=== PATIENT | female | born 1980 | race Caucasian/White ===

== ENCOUNTER 2017-07-31 20:31 | Emergency (ER) | payer MEDICAID ==
[~2017-07-31] VITALS: Ht 154.9 cm; Wt 88.7 kg
[~2017-07-31 20:31] MED LIST: ARIP5TAB4 PO; CITA-278 PO; FERR325T39 PO; IBUP-1572 PO; LORA0.5T PO; TEMA30CA5 PO; TOPI50TA PO
[2017-07-31] MEDS ORDERED: benzonatate 100mg capsule PO ONE (20:55)
[2017-07-31] MEDS ORDERED: cyclobenzaprine 10mg tablet PO ONE (20:55)
[2017-07-31 21:25] VITALS: BP 142/73
[2017-07-31] MEDS ORDERED: CYCL-1 PO (21:31)
== END 2017-07-31 21:40 | disposition home or self-care (01) ==
LOC: ER 20:32
DX: R07.89 Other chest pain (principal); R05 Cough; F17.200 Nicotine dependence, unspecified, uncomplicated; G43.909 Migraine, unspecified, not intractable, without status migrainosus; Z90.49 Acquired absence of other specified parts of digestive tract; Z79.899 Other long term (current) drug therapy
CPT/HCPCS: 71046; 99284

== ENCOUNTER 2017-08-02 10:29 | Emergency (ER) | payer MEDICAID ==
[~2017-08-02] VITALS: Ht 154.9 cm; Wt 70.0 kg
[~2017-08-02 10:29] MED LIST changes: +CYCL-1 PO
[2017-08-02] MEDS ORDERED: morphine 4 MG/ML inj SYRINge IV ONE (12:35)
[2017-08-02] MEDS ORDERED: ondansetron/PF 4mg/2ml inj IV ONE (12:35)
[2017-08-02] MEDS ORDERED: diazepam 5mg tablet PO ONE (12:35)
[2017-08-02] MEDS ORDERED: HYDR-565 PO (13:25)
[2017-08-02] MEDS ORDERED: ONDA4TAB9 PO (13:25)
[2017-08-02 14:00] VITALS: BP 110/52
== END 2017-08-02 14:06 | disposition home or self-care (01) ==
LOC: ER 10:30
DX: S22.31XA Fracture of one rib, right side, initial encounter for closed fracture (principal); G43.909 Migraine, unspecified, not intractable, without status migrainosus; F41.9 Anxiety disorder, unspecified; Z90.49 Acquired absence of other specified parts of digestive tract; Z79.899 Other long term (current) drug therapy; X58.XXXA Exposure to other specified factors, initial encounter; Y93.89 Activity, other specified; Y99.8 Other external cause status; Y92.89 Other specified places as the place of occurrence of the external cause
CPT/HCPCS: 71250; 96374; 96375; 99284; J2270; J2405

== ENCOUNTER 2018-02-25 18:30 | Emergency (ER) | payer MEDICAID ==
[~2018-02-25] VITALS: Ht 154.9 cm; Wt 84.3 kg
[2018-02-25 18:58] VITALS: BP 122/83
[2018-02-25] MEDS ORDERED: ipratropium/albuterol 3ml nebule NEB ONE (19:25)
[2018-02-25] MEDS ORDERED: ALBU6.7H INH (19:33)
[2018-02-25] MEDS ORDERED: PRED20TA PO (19:33)
[2018-02-25] MEDS ORDERED: AZIT250T2 PO (19:33)
== END 2018-02-25 21:25 | disposition home or self-care (01) ==
LOC: ER 18:31
DX: J40 Bronchitis, not specified as acute or chronic (principal); Z90.49 Acquired absence of other specified parts of digestive tract; Z98.890 Other specified postprocedural states; Z79.2 Long term (current) use of antibiotics; Z79.899 Other long term (current) drug therapy
CPT/HCPCS: 71046; 94640; 94760; 99283

== ENCOUNTER 2020-04-10 02:09 | Emergency (ER) | payer MEDICAID ==
[~2020-04-10 02:09] MED LIST changes: +ALBU6.7H9 INH; +ARIP5TAB14 PO; -ARIP5TAB4 PO; -CITA-278 PO; +CITA20TA28 PO
[2020-04-10] MEDS ORDERED: ondansetron 4mg rapidly disintigrating tab PO ONE (02:15)
--- NOTE | 2020-04-10 02:30 | NUR ---
Patient sleeping comfortably, she is on the monitor and I will keep an eye on her.
[2020-04-10 05:00] VITALS: BP 107/67
== END 2020-04-10 06:45 | disposition home or self-care (01) ==
LOC: ER 02:09
DX: F10.129 Alcohol abuse with intoxication, unspecified (principal); R11.0 Nausea; G43.909 Migraine, unspecified, not intractable, without status migrainosus; F41.9 Anxiety disorder, unspecified; Z87.440 Personal history of urinary (tract) infections; Z90.89 Acquired absence of other organs; Z72.89 Other problems related to lifestyle; Z79.899 Other long term (current) drug therapy; Y90.9 Presence of alcohol in blood, level not specified
CPT/HCPCS: 99284

== ENCOUNTER 2022-12-24 09:49 | Emergency (ER) | payer MEDICAID ==
[~2022-12-24] VITALS: Ht 154.9 cm; Wt 56.4 kg
[~2022-12-24 09:49] MED LIST changes: +ALBU6.7H14 INH; -ALBU6.7H9 INH
--- NOTE | 2022-12-24 10:50 | NUR ---
1037 I have reviewed and agree with all interventions, assessments performed and documented by SHERYL Zaman.
[2022-12-24] MEDS ORDERED: CHLO473M3 PO (11:14)
[2022-12-24] MEDS ORDERED: AMOX-117 PO (11:14)
[2022-12-24] MEDS ORDERED: acetaminophen 325mg tablet PO ONE (11:15)
[2022-12-24] MEDS ORDERED: amox tr/potassium clavulanate 875/125mg TAB PO ONE (11:15)
[2022-12-24] MEDS ORDERED: ketorolac trometh. 30mg/ml inj. IM ONE (11:15)
[2022-12-24 11:28] VITALS: BP 105/66; PULSE 61; RESP 17; TEMP 97.7; O2SAT 99
== END 2022-12-24 13:46 | disposition home or self-care (01) ==
LOC: ER 09:50
DX: K04.7 Periapical abscess without sinus (principal); F41.9 Anxiety disorder, unspecified; G43.909 Migraine, unspecified, not intractable, without status migrainosus; Z90.49 Acquired absence of other specified parts of digestive tract; Z79.899 Other long term (current) drug therapy
CPT/HCPCS: 96372; 99283; J1885

== ENCOUNTER 2024-10-22 16:28 | Emergency (ER) | payer MEDICAID ==
[~2024-10-22] VITALS: Ht 152.4 cm; Wt 61.8 kg
[~2024-10-22 16:28] MED LIST changes: +ARIP5TAB12 PO; -ARIP5TAB14 PO; +CHLO473M13 PO; +CITA-178 PO; -CITA20TA28 PO
[2024-10-22 16:52] VITALS: BP 110/70; PULSE 87; RESP 16; TEMP 97.8; O2SAT 99
--- NOTE | 2024-10-22 16:58 | Physician Documentation ---
History of Present Illness Stated Complaint: SPIDER BITE Time Seen by MD: 16:43 Primary Medical Doctor: [facility] This is a 44-year-old female that presents to the emergency department for evaluation of an abscess to her left posterior forearm. She reports that she felt a tickle on her arm while she was lying in bed on Wednesday but did not feel any pain at that time. Over the course of and Wednesday the patient reports that her arm started stinging she developed a bump saw her physician on Wednesday she was placed on antibiotics at that time. Patient reports that she has been taking the antibiotics since Wednesday and swelling have gotten worse since that time. Patient denies any fevers nausea vomiting patient is afebrile for us here today. Medication Reconciliation Allergies: Coded Allergies: No Known Allergies (Unverified , 10/22/24) Scheduled Albuterol Sulfate (Proventil Hfa), 2 PUFFS INH Q6H Aripiprazole* (Abilify*), 2 MG PO DAILY, (Reported) Chlorhexidine Gluconate (Periogard), 15 ML PO Q12H Citalopram Hydrobromide* (Celexa*), 1 TAB PO DAILY, (Reported) Ferrous Sulfate (Ferrous Sulfate), 1 TABLET PO BID, (Reported) Ibuprofen (Ibuprofen), 400 MG PO Q8H Temazepam* (Restoril*), 15 MG PO HS, (Reported) Topiramate (Topamax), 150 MG PO DAILY, (Reported) Scheduled PRN Cyclobenzaprine* (Cyclobenzaprine*), 1 TABLET PO Q8H PRN for muscle spasms Lorazepam* (Ativan*), 0.5 MG PO Q12H PRN for anxiety, (Reported) Past Medical History Past Medical History: Migraine, Hernia, UTI, Anxiety Past Surgical History: appendectomy Other Past Surgical History: Hernia Repair Alcohol Use: Occasionally Drug Use: none Lives with: Spouse Lives In: Home Review of Systems ROS As stated above in the HPI, otherwise all systems are reviewed and negative. Physical Exam Physical Exam VITALS: Reviewed and as above. GENERAL: Alert, no apparent distress. HEENT: Normocephalic, atraumatic, PERRL, EOMI, dry mucosa, no erythema RESPIRATORY: Lungs clear, normal breath sounds, no respiratory distress. CHEST: No accessory muscle use, no retractions CV: Regular rate, rhythm, no edema, no murmur, No: JVD GI: Soft, non-tender, bowels sounds present, no rebound, guarding, or rigidity BACK: No CVA tenderness, or swelling MUSCULOSKELETAL No deformities, no edema SKIN: Warm and dry, erythema swelling noted to the left posterior forearm. NEURO: Oriented x4, No motor or sensory deficit PSYCH: Normal mood and affect, no agitation Medical Decision Making Findings This patient presents with a painful fluid pocket with fluctuance and surrounding induration and erythema, concerning for an abscess of the left posterior elbow. The abscess was anesthetized with lidocaine and then I&D was p erformed with deloculation and purulence was expressed. There is no lymphangitic spread visible. Low concern for osteomyelitis. Patient is not immunocompromised, and there is no bullae, pain out of proportion, or rapid progression concerning for necrotizing fasciitis. Patient to be discharged home with bactrim. Patient is already on keflex. Patient will follow up with follow up with their PMD. Strict return precautions will be provided. Differential Dx:Considerations: Include: AAA, -Complete, - Incomplete, -Inevitable, -Missed, -Threatened, Abruptio placentae, Angina/[place], Aortic dissection, Appendicitis, Bowel obstruction, Cholangitis, Cholelithasis, Constipation, Diverticular disease, Esophageal rupture, Esophagitis, Gastritis/PUD, Gastroenteritis, GI hemorrhage, Hernia, Hepatitis, Inflammatory BD, Ischemic bowel, Ovarian cyst/torsion, Pancreatitis, PID, Porphyria, Trauma, intraabdominal, Urinary obstruction, Urinary tract infection, Urolithiasis, Other Departure Disposition: 01 HOME / SELF CARE / HOMELESS Impression: Primary Impression: Abscess Additional Impressions: Erythema Swelling Pain Condition: Stable Discharge Instructions: Abscess, Care After, Skin Abscess, [id number], Incision and Drainage Additional Instructions: This patient presents with a painful fluid pocket with fluctuance and surrounding induration and erythema, concerning for an abscess of the left posterior elbow. The abscess was anesthetized with lidocaine and then I&D was performed with deloculation and purulence was expressed. There is no lymphangit ic spread visible. Low concern for osteomyelitis. Patient is not immunocompromised, and there is no bullae, pain out of proportion, or rapid progression concerning for necrotizing fasciitis. Patient to be discharged home with bactrim. Patient is already on keflex. Follow up with her primary care provider for a wound check in 2 days. Return to the emergency department if you have any worsening or recurrent symptoms or any additional concerning symptoms that we discussed here today i.e. increased redness increased swelling increased pain, fever chills nausea vomiting or any other concerning symptoms. Referrals: NO PRIMARY CARE PROVIDER (PCP) Prescriptions Sulfamethoxazole/Trimethoprim (Bactrim Ds Tablet) 800 Mg-160 Mg Tablet 1 TAB PO Q12H for 10 Days, #20 TAB Prov: DANIELLE DAO 10/22/24 Education Educated: Patient Educated regarding: diagnosis, treatment, need for follow up Signature Scribe Signature: A Attestation: Scribed for Danielle Dao by JENNY Yi . 10/22/24 18:10 DANIELLE DAO Oct 22, 2024 16:58
[2024-10-22] MEDS: LIDOcaine 1% 30ml preserv. free vial IJ ONE (17:17)
[2024-10-22] MEDS: LIDOcaine 1% 30ml preserv. free vial IJ STA (17:17)
[2024-10-22] MEDS ORDERED: SULF1TAB49 PO (18:09)
[2024-10-22] MEDS: sulfamethoxazole/trimethoprim DS (800/160mg) tablet PO ONE (18:18)
== END 2024-10-22 18:20 | disposition home or self-care (01) ==
LOC: ER 16:29
DX: L02.512 Cutaneous abscess of left hand (principal); F41.9 Anxiety disorder, unspecified; G43.909 Migraine, unspecified, not intractable, without status migrainosus; Z90.49 Acquired absence of other specified parts of digestive tract; Z98.890 Other specified postprocedural states; Z79.899 Other long term (current) drug therapy; Z72.89 Other problems related to lifestyle
CPT/HCPCS: 10060; 99283; A6266; J7030; A6446; A6449

== ENCOUNTER 2025-01-21 09:22 | Emergency (ER) | payer MEDICAID ==
[~2025-01-21] VITALS: Ht 152.4 cm; Wt 61.6 kg
[2025-01-21 09:30] VITALS: BP 142/81; PULSE 86; RESP 18; TEMP 97; O2SAT 98
[2025-01-21] MEDS ORDERED: IBUP-1984 PO (09:51)
[2025-01-21] MEDS ORDERED: CEPH-585 PO (09:51)
[2025-01-21] MEDS ORDERED: OFLO5DRO LEFTEYE (09:52)
--- NOTE | 2025-01-21 09:52 | Physician Documentation ---
History of Present Illness ~ Chief Complaint: Eye Pain Stated Complaint: EYE PAIN Time Seen by MD: 09:47 Primary Medical Doctor: KASSIDY EPSARZA [facility] Otherwise healthy 44-year-old female who presents to the emergency department for evaluation of the left upper eyelid stye. He states symptoms have been present for one week without resolution. She continues to warm moist soaks. C oncerned because there is mild upper lid erythema. No fevers. No visual difficulties. Medication Reconciliation Allergies: Coded Allergies: No Known Allergies (Unverified , 01/21/25) Scheduled Albuterol Sulfate (Proventil Hfa), 2 PUFFS INH Q6H Aripiprazole* (Abilify*), 2 MG PO DAILY, (Reported) Cephalexin*Monohydrate* (Keflex*), 1 CAP PO TID Chlorhexidine Gluconate (Periogard), 15 ML PO Q12H Citalopram Hydrobromide* (Celexa*), 1 TAB PO DAILY, (Reported) Ferrous Sulfate (Ferrous Sulfate), 1 TABLET PO BID, (Reported) Ibuprofen (Ibuprofen), 400 MG PO Q8H Ibuprofen* (Motrin*), 400 MG PO Q6H Ofloxacin Opth.* (Ofloxacin Opth.*), 1-2 DRP LEFTEYE Q6H Temazepam* (Restoril*), 15 MG PO HS, (Reported) Topiramate (Topamax), 150 MG PO DAILY, (Reported) Scheduled PRN Cyclobenzaprine* (Cyclobenzaprine*), 1 TABLET PO Q8H PRN for muscle spasms Lorazepam* (Ativan*), 0.5 MG PO Q12H PRN for anxiety, (Reported) Past Medical History Past Medical History: Migraine, Hernia, UTI, Anxiety Past Surgical History: appendectomy Other Past Surgical History: Hernia Repair Alcohol Use: Occasionally Drug Use: none Lives with: Spouse Lives In: Home Review of Systems All Other Systems at this time: Reviewed and Negative Constitutional: Reports: see HPI Physical Exam Vital Signs: RN Vital Signs have been reviewed: Yes, Temperature: 97.0, Source: Temporal, Heart Rate: 86, Respiratory Rate: 18, BP: 142/81, Pulse Oximetry: 98, Weight: 61.600 Oxygen Flow Rate: 0 General Appearance: alert, WD/WN, other (Anxiousness) Eye Lid: pustule, redness, swelling, tender, warm Conjunctiva: normal inspection Cornea: normal inspection Pupils/EOM/Fundus: PERRLA, EOM intact Nose: normal inspection Face: normal inspection Respiratory: no respiratory distress Chest: no accessory muscle use Skin: normal color Lymphatic: no adenopathy Neurologic: oriented x4 Psychiatric: normal mood/affect Progress Results/Orders Results/Orders Vital Signs 01/21/25 09:30 Temp 97.0 Pulse 86 Resp 18 B/P (MAP) 142/81 Pulse Ox 98 O2 Flow Rate 0 Medical Decision Making Additional information obtaine: N/A Findings Examination history consistent with the external infected stye. We will begin empiric antibiotic for early periorbital cellulitis. Recommendations for warm moist soaks and we will provide ofloxacin drops for empiric treatment of corneal abrasion. Patient understands to begin medications and follow up with the Ophthalmology. Safely discharged in the emergency department without clinical suspicion for periorbital cellulitis, orbital cellulitis. Ear Diff. Dx: Considerations: Include: Other (Noncontributory) Eye Diff. Dx: Considerations: Include: [place]az[place], Conjuctivits-allergic, Conjuc tivitis-bacterial, Conjuctivits-chlamydial, Conjuctivitis-viral, Corneal abrasion, Corneal laceration, Corneal ulceration, Foreign body-conjuctiva, Foreign body-corneal, Foreign body-intraocular, Foreign body-lid, Glaucoma, Globe rupture, Hordeolum, Iritis, Orbital cellulitis, Periobital cellulitis, Retinal artery occulsion, Retinal vein occlusion, Rust ring, Subconjunctival hem, Ultraviolet keratitis, Uveitis, Vitreous hemorrhage, Other Nose Diff. Dx: Considerations: Include: Other (Noncontributory) Tooth Diff. Dx: Considerations: Include: Other (Noncontributory) Throat Diff Dx: Considerations: Include: Other (Noncontributory) Departure Disposition: HOME / SELF CARE / HOMELESS Impression: Primary Impression: Sty, external Qualified Codes: H00.014 - Hordeolum externum left upper eyelid Condition: Stable Discharge Instructions: Sty Referrals: NO PRIMARY CARE PROVIDER (PCP) Prescriptions Ofloxacin Opth.* (Ofloxacin Opth.*) 5 Ml Bottle 1-2 DRP OLIVERE Q6H, #1 EACH Prov: DYAN AJUREGUI PAC 01/21/25 Ibuprofen* (Motrin*) 400 Mg Tablet 400 MG PO Q6H for 10 Days, #30 TAB Prov: DYAN JAUREGUI PAC 01/21/25 Cephalexin*Monohydrate* (Keflex*) 500 Mg Capsule 1 CAP PO TID, #21 CAP Prov: DYAN JAUREGUI PAC 01/21/25 Education Educated: Patient Educated regarding: diagnosis, treatment, prognosis, need for follow up Signature Scribe Signature: . Attestation: . DYAN JAUREGUI [facility] Jan 21, 2025 09:52
== END 2025-01-21 10:00 | disposition home or self-care (01) ==
LOC: ER 09:22
DX: H00.014 Hordeolum externum left upper eyelid (principal); G43.909 Migraine, unspecified, not intractable, without status migrainosus; F41.9 Anxiety disorder, unspecified; Z98.890 Other specified postprocedural states; Z90.49 Acquired absence of other specified parts of digestive tract; Z87.440 Personal history of urinary (tract) infections; Z79.899 Other long term (current) drug therapy; Z72.89 Other problems related to lifestyle
CPT/HCPCS: 99283